=== PATIENT | female | born 1960 | race Caucasian/White ===

== ENCOUNTER 2022-07-10 08:38 | Inpatient (IN) | payer MEDICAID ==
[~2022-07-10] VITALS: Ht 160 cm; Wt 115.0 kg
[~2022-07-10 08:38] MED LIST: CYCL-1 PO; PHEN-786 PO
[2022-07-10 09:42] LABS: BASOPHILS % (AUTO) 0.2 % (0-1); EOSINOPHILS % (AUTO) 0.1 % (0-6); HEMATOCRIT 41.1 % (35.0-45.0); LYMPHOCYTES # (AUTO) 0.4 X10'3 (1.1-4.8); LYMPHOCYTES % (AUTO) 1.8 % (21-51); MEAN CORPUSCULAR HEMOGLOBIN 32.4 PG (27.0-31.0); MEAN CORPUSCULAR VOLUME 95.2 FL (78-98); MEAN PLATELET VOLUME 7.8 FL (7.4-10.4); MONOCYTES # (AUTO) 2.1 X10'3 (0-0.9); MONOCYTES % (AUTO) 10.5 % (2-12); NEUTROPHILS # (AUTO) 17.8 X10'3 (1.8-7.7); NEUTROPHILS % (AUTO) 87.4 % (42-75); PLATELET COUNT 271 X10'3 (140-440); RED BLOOD COUNT 4.32 X10'6 (4.20-5.60); RED CELL DISTRIBUTION WIDTH 13.1 % (11.5-14.5); WHITE BLOOD COUNT 20.3 X10'3 (4.5-11.0)
[2022-07-10 10:04] LABS: ALANINE AMINOTRANSFERASE 186 U/L (12-78); ALBUMIN 3.1 G/DL (3.4-5.0); ALBUMIN/GLOBULIN RATIO 0.6 (1.1-1.5); ALKALINE PHOSPHATASE 176 IU/L (46-116); ANION GAP 10 (8-16); ASPARTATE AMINO TRANSFERASE 112 U/L (10-37); BILIRUBIN,TOTAL 1.7 MG/DL (0.1-1.0); BLOOD UREA NITROGEN 13 MG/DL (7-18); BUN/CREATININE RATIO 13.5 (6.6-38.0); CALCIUM 9.5 MG/DL (8.5-10.1); CHLORIDE 94 MMOL/L (99-107); CREATININE 0.96 MG/DL (0.40-0.90); GLUCOSE 162 MG/DL (70-104); LIPASE 86 U/L (73-393); POTASSIUM 3.9 MMOL/L (3.5-5.1); SODIUM 130 MMOL/L (135-145); TOTAL CARBON DIOXIDE 25.7 MMOL/L (24-32); TOTAL PROTEIN 7.9 G/DL (6.4-8.2); eGFR 59 ML/MIN
[2022-07-10 10:14] LABS: PLATELET ESTIMATE NORMAL; TOTAL CELLS COUNTED 100
[2022-07-10] MEDS ORDERED: cefTAZidime inj 2 GM in normal saline 100ml IV soln 100 ML IV STA (10:40)
[2022-07-10] MEDS ORDERED: iohexol 300mg/ml 100ml inj. ONE (11:34)
--- NOTE | 2022-07-10 11:56 | NUR ---
Still in the CT scan dept at this time.
[2022-07-10 12:24] LABS: CLARITY,URINE CLEAR (Clear); COLOR,URINE YELLOW (Yellow); GLUCOSE, URINE NEGATIVE (Neg); KETONES,URINE NEGATIVE (Neg); LEUKOCYTE ESTERASE ,URINE NEGATIVE (Neg); NITRITES, URINE NEGATIVE (Neg); OCCULT BLOOD,URINE TRACE-INTACT (Neg); PH,URINE 6.5 (4.8-8.0); PROTEIN,URINE NEGATIVE (Neg); UROBILINOGEN,URINE 0.2 E.U/dL (0.2-1.0)
[2022-07-10 12:28] LABS: URINE HCG NEGATIVE (NEG)
[2022-07-10 12:35] LABS: UA COLLECTION TYPE CLN CATCH MIDSTREAM
[2022-07-10 12:36] LABS: SQUAMOUS EPITHELIAL CELL,UR FEW /LPF (FEW)
[2022-07-10 12:37] LABS: BACTERIA,URINE FEW /HPF (Neg); RBC,URINE 0-2 /HPF (0-2); WBC,URINE 0-4 /HPF (0-4)
[2022-07-10] MEDS ORDERED: metroNIDAZOLE-Flagyl 500mg/NS 100 ML IV STA (14:21)
[2022-07-10] MEDS ORDERED: magnesium hydroxide 30ml (MOM) UD suspension PO PRN (14:35)
[2022-07-10] MEDS ORDERED: mag hydrox/Alum hydrox/simeth 30ml oral suspension PO PRN (14:35)
[2022-07-10] MEDS ORDERED: potassium Cl 40MEQ/1/2NS 520ml 520 ML IV PRN (14:35)
[2022-07-10] MEDS ORDERED: bisacodyl 10mg suppository rectal RC PRN (14:35)
[2022-07-10] MEDS ORDERED: potassium Cl 20 mEq SR tablet PO PRN ×2 (14:35)
[2022-07-10] MEDS ORDERED: magnesium 4gm in 100ml NS 100 ML IV PRN (14:35)
[2022-07-10] MEDS ORDERED: metoclopramide 5 mg/ml inj IV PRN (14:35)
[2022-07-10] MEDS ORDERED: magnesium Cl slow-release 64mg tablet PO PRN (14:35)
[2022-07-10 15:08] LABS: MAGNESIUM 2.1 MG/DL (1.5-2.4)
[2022-07-10] MEDS: normal saline 1000ml 1,000 ML IV SCH (15:10)
[2022-07-10] MEDS: ondansetron/PF 4mg/2ml inj IV PRN (15:10)
[2022-07-10] MEDS: morphine 4 MG/ML inj SYRINge IV PRN ×2 (15:12→20:45)
--- NOTE | 2022-07-10 15:47 | NUR ---
Received patient report from Mara SOTELO in [place]. Will assume patient care when patient comes to the floor.
--- NOTE | 2022-07-10 16:24 | NUR ---
PAGER ID: [phone] MESSAGE: Reyna Surg [phone] Re: Ernie ChisholmA can we get some ativan for patient ?
[2022-07-10] MEDS: LORazepam 0.5 MG tablet PO PRN (16:57)
[2022-07-10 17:00] VITALS: BP 144/72
[2022-07-10 18:00] VITALS: BP 113/72
--- NOTE | 2022-07-10 18:28 | NUR ---
Problems reprioritized. Patient report given, questions answered & plan of care reviewed with Prudence RN.
--- NOTE | 2022-07-10 18:47 | NUR ---
Problems reprioritized. Patient report given, questions answered & plan of care reviewed with Prudence RN.
--- NOTE | 2022-07-10 19:13 | NUR ---
Patient in room [facility]. I have received report from WESTON SOTELO and had the opportunity to ask questions and assume patient care.
[2022-07-10] MEDS ORDERED: docusate sod 100mg capsule PO SCH (20:00)
[2022-07-10] MEDS: K and/or MAG REPLACEMENT MC SCH (20:37)
[2022-07-10] MEDS: diatr meglu/diatrizoate 30ml oral sol.-(3 dose) bottle PO SCH (20:45)
[2022-07-10] MEDS: heparin, porcine 5000 units/ml vial SQ SCH (20:45)
[2022-07-10] MEDS ORDERED: temazepam 15mg capsule PO PRN (21:00)
[2022-07-10] MEDS: cefTAZidime inj. 1 GM in normal saline 100ml IV soln 100 ML IV SCH (21:04)
[2022-07-10 22:00] VITALS: BP 103/65
[2022-07-10] MEDS: metroNIDAZOLE-Flagyl 500mg/NS 100 ML IV SCH (22:27)
[2022-07-11] MEDS: normal saline 1000ml 1,000 ML IV SCH ×3 (01:13→14:33)
[2022-07-11] MEDS: morphine 4 MG/ML inj SYRINge IV PRN ×3 (04:37→23:40)
[2022-07-11] MEDS: metroNIDAZOLE-Flagyl 500mg/NS 100 ML IV SCH ×3 (05:49→21:55)
[2022-07-11 06:00] VITALS: BP 119/73
--- NOTE | 2022-07-11 06:13 | NUR ---
Problems reprioritized. Patient report given, questions answered & plan of care reviewed with HIMA SOTELO/MARISA DOUGLASS.
--- NOTE | 2022-07-11 06:30 | NUR ---
Patient in room [facility]. I have received report from ASHLEIGH Adame and had the opportunity to ask questions and assume patient care.
[2022-07-11] MEDS: diatr meglu/diatrizoate 30ml oral sol.-(3 dose) bottle PO SCH ×2 (07:18→09:57)
[2022-07-11] MEDS: heparin, porcine 5000 units/ml vial SQ SCH ×2 (07:19→20:00)
[2022-07-11 07:23] LABS: BASOPHILS % (AUTO) 0.1 % (0-1); EOSINOPHILS % (AUTO) 0.2 % (0-6); HEMATOCRIT 34.7 % (35.0-45.0); HEMOGLOBIN 11.5 g/dl (12.0-16.0); LYMPHOCYTES # (AUTO) 0.6 X10'3 (1.1-4.8); LYMPHOCYTES % (AUTO) 5.6 % (21-51); MEAN CORPUSCULAR HEMOGLOBIN 31.8 PG (27.0-31.0); MEAN CORPUSCULAR HGB CONC 33.1 g/dL (33.0-36.5); MEAN CORPUSCULAR VOLUME 96.1 FL (78-98); MEAN PLATELET VOLUME 7.6 FL (7.4-10.4); MONOCYTES # (AUTO) 1.2 X10'3 (0-0.9); NEUTROPHILS # (AUTO) 9.3 X10'3 (1.8-7.7); NEUTROPHILS % (AUTO) 83.1 % (42-75); PLATELET COUNT 250 X10'3 (140-440); RED BLOOD COUNT 3.61 X10'6 (4.20-5.60); RED CELL DISTRIBUTION WIDTH 13.3 % (11.5-14.5); WHITE BLOOD COUNT 11.2 X10'3 (4.5-11.0)
[2022-07-11 07:26] LABS: ALANINE AMINOTRANSFERASE 110 U/L (12-78); ALBUMIN 2.3 G/DL (3.4-5.0); ALBUMIN/GLOBULIN RATIO 0.6 (1.1-1.5); ALKALINE PHOSPHATASE 124 IU/L (46-116); ANION GAP 5 (8-16); ASPARTATE AMINO TRANSFERASE 31 U/L (10-37); BILIRUBIN,TOTAL 0.4 MG/DL (0.1-1.0); BLOOD UREA NITROGEN 12 MG/DL (7-18); BUN/CREATININE RATIO 17.9 (6.6-38.0); CALCIUM 8.6 MG/DL (8.5-10.1); CHLORIDE 103 MMOL/L (99-107); CREATININE 0.67 MG/DL (0.40-0.90); GLUCOSE 116 MG/DL (70-104); MAGNESIUM 2.2 MG/DL (1.5-2.4); SODIUM 135 MMOL/L (135-145); TOTAL CARBON DIOXIDE 27.5 MMOL/L (24-32); TOTAL PROTEIN 6.2 G/DL (6.4-8.2); eGFR 90 ML/MIN
[2022-07-11] MEDS: K and/or MAG REPLACEMENT MC SCH ×2 (08:05→20:00)
[2022-07-11] MEDS: cefTAZidime inj. 1 GM in normal saline 100ml IV soln 100 ML IV SCH (08:12)
[2022-07-11 10:00] VITALS: BP 117/74
[2022-07-11] MEDS ORDERED: iohexol 300mg/ml 100ml inj. ONE (10:54)
[2022-07-11] MEDS: CefTRIAXone 2gm/D5W 50ml BAG 50 ML IV SCH (11:25)
[2022-07-11] MEDS ORDERED: NO HOME MEDS (12:07)
--- NOTE | 2022-07-11 17:59 | NUR ---
I have reviewed and agree with all interventions, assessments performed and documented by EVONNE CUNNINGHAM.
--- NOTE | 2022-07-11 18:13 | NUR ---
Problems reprioritized. Patient report given, questions answered & plan of care reviewed with ASHLEIGH Toledo.
[2022-07-11 19:10] VITALS: BP 140/76
[2022-07-12] VITALS (16 sets, daily range): BP systolic 128–159; BP diastolic 69–92
[2022-07-12] MEDS: normal saline 1000ml 1,000 ML IV SCH ×2 (02:00→14:39)
[2022-07-12] MEDS: metroNIDAZOLE-Flagyl 500mg/NS 100 ML IV SCH ×3 (05:27→22:12)
[2022-07-12] MEDS: ondansetron/PF 4mg/2ml inj IV PRN (06:02)
--- NOTE | 2022-07-12 06:53 | NUR ---
Patient in room [facility]. I have received report from ASHLEIGH Toledo and had the opportunity to ask questions and assume patient care.
--- NOTE | 2022-07-12 06:59 | NUR ---
Problems reprioritized. Patient report given, questions answered & plan of care reviewed with Mitul. Addendum: 07/12/22 at 0659 by Gordon Arenas RN Amended: Links added.
[2022-07-12 07:16] LABS: BASOPHILS % (AUTO) 0 % (0-1); EOSINOPHILS % (AUTO) 0.1 % (0-6); HEMATOCRIT 37.1 % (35.0-45.0); HEMOGLOBIN 12.1 g/dl (12.0-16.0); LYMPHOCYTES # (AUTO) 0.5 X10'3 (1.1-4.8); LYMPHOCYTES % (AUTO) 4.1 % (21-51); MEAN CORPUSCULAR HEMOGLOBIN 32.6 PG (27.0-31.0); MEAN CORPUSCULAR HGB CONC 32.5 g/dL (33.0-36.5); MEAN CORPUSCULAR VOLUME 100.1 FL (78-98); MEAN PLATELET VOLUME 7.3 FL (7.4-10.4); MONOCYTES # (AUTO) 1.3 X10'3 (0-0.9); MONOCYTES % (AUTO) 11.4 % (2-12); NEUTROPHILS # (AUTO) 9.8 X10'3 (1.8-7.7); NEUTROPHILS % (AUTO) 84.4 % (42-75); PLATELET COUNT 259 X10'3 (140-440); RED CELL DISTRIBUTION WIDTH 13.6 % (11.5-14.5); WHITE BLOOD COUNT 11.7 X10'3 (4.5-11.0)
[2022-07-12] MEDS: heparin, porcine 5000 units/ml vial SQ SCH ×2 (07:23→20:00)
[2022-07-12 07:26] LABS: APTT 31 SECONDS (22-32)
[2022-07-12 07:33] LABS: ALANINE AMINOTRANSFERASE 76 U/L (12-78); ALBUMIN 2.2 G/DL (3.4-5.0); ALBUMIN/GLOBULIN RATIO 0.6 (1.1-1.5); ALKALINE PHOSPHATASE 118 IU/L (46-116); ANION GAP 8 (8-16); ASPARTATE AMINO TRANSFERASE 19 U/L (10-37); BILIRUBIN,TOTAL 0.4 MG/DL (0.1-1.0); BLOOD UREA NITROGEN 7 MG/DL (7-18); BUN/CREATININE RATIO 11.5 (6.6-38.0); CALCIUM 8.4 MG/DL (8.5-10.1); CHLORIDE 102 MMOL/L (99-107); CREATININE 0.61 MG/DL (0.40-0.90); GLUCOSE 118 MG/DL (70-104); MAGNESIUM 2.1 MG/DL (1.5-2.4); POTASSIUM 3.8 MMOL/L (3.5-5.1); SODIUM 133 MMOL/L (135-145); TOTAL CARBON DIOXIDE 23.4 MMOL/L (24-32); TOTAL PROTEIN 6.2 G/DL (6.4-8.2); eGFR > 90 ML/MIN
[2022-07-12] MEDS: CefTRIAXone 2gm/D5W 50ml BAG 50 ML IV SCH (08:15)
[2022-07-12] MEDS: K and/or MAG REPLACEMENT MC SCH ×2 (08:19→20:00)
[2022-07-12] MEDS: morphine 4 MG/ML inj SYRINge IV PRN ×2 (10:00→18:18)
--- NOTE | 2022-07-12 11:06 | NUR ---
I have reviewed and agree with all interventions, assessments performed and documented by EVONNE CUNNINGHAM.
[2022-07-12] MEDS ORDERED: fentaNYL/PF 50MCG/1 ML 2ML syringe ONE (11:31)
[2022-07-12] MEDS ORDERED: midazolam 1 mg/ML 2ml injection ONE (11:31)
--- NOTE | 2022-07-12 12:45 | NUR ---
Recevied patient back from IR procedure. Post op vital signs started, VSS. 2 new JAYCEE drains. Dressings CDI. Patient reports no pain at this time.
[2022-07-12] MEDS: acetaminophen 325mg tablet PO PRN ×2 (14:34→22:32)
--- NOTE | 2022-07-12 18:20 | NUR ---
Problems reprioritized. Patient report given, questions answered & plan of care reviewed with ASHLEIGH Toledo.
[2022-07-13] MEDS: morphine 4 MG/ML inj SYRINge IV PRN ×3 (02:13→19:34)
[2022-07-13] MEDS: normal saline 1000ml 1,000 ML IV SCH ×3 (02:13→22:35)
[2022-07-13] MEDS: acetaminophen 325mg tablet PO PRN ×2 (04:48→13:52)
[2022-07-13 04:51] LABS: BASOPHILS % (AUTO) 0.2 % (0-1); EOSINOPHILS % (AUTO) 0.5 % (0-6); HEMATOCRIT 35.1 % (35.0-45.0); HEMOGLOBIN 11.7 g/dl (12.0-16.0); LYMPHOCYTES # (AUTO) 0.6 X10'3 (1.1-4.8); LYMPHOCYTES % (AUTO) 7.2 % (21-51); MEAN CORPUSCULAR HEMOGLOBIN 32.2 PG (27.0-31.0); MEAN CORPUSCULAR HGB CONC 33.4 g/dL (33.0-36.5); MEAN CORPUSCULAR VOLUME 96.5 FL (78-98); MEAN PLATELET VOLUME 7.1 FL (7.4-10.4); MONOCYTES # (AUTO) 0.9 X10'3 (0-0.9); MONOCYTES % (AUTO) 10.1 % (2-12); NEUTROPHILS # (AUTO) 7.3 X10'3 (1.8-7.7); PLATELET COUNT 269 X10'3 (140-440); RED BLOOD COUNT 3.64 X10'6 (4.20-5.60); RED CELL DISTRIBUTION WIDTH 12.7 % (11.5-14.5); WHITE BLOOD COUNT 8.9 X10'3 (4.5-11.0)
[2022-07-13 05:10] LABS: PLATELET ESTIMATE NORMAL; SMUDGE CELLS FEW; TOTAL CELLS COUNTED 100
[2022-07-13 05:19] LABS: ALANINE AMINOTRANSFERASE 53 U/L (12-78); ALBUMIN 2.1 G/DL (3.4-5.0); ALBUMIN/GLOBULIN RATIO 0.6 (1.1-1.5); ALKALINE PHOSPHATASE 112 IU/L (46-116); ANION GAP 4 (8-16); ASPARTATE AMINO TRANSFERASE 24 U/L (10-37); BILIRUBIN,TOTAL 0.3 MG/DL (0.1-1.0); BLOOD UREA NITROGEN 8 MG/DL (7-18); BUN/CREATININE RATIO 13.6 (6.6-38.0); CALCIUM 8.2 MG/DL (8.5-10.1); CHLORIDE 102 MMOL/L (99-107); CREATININE 0.59 MG/DL (0.40-0.90); GLUCOSE 100 MG/DL (70-104); MAGNESIUM 2.1 MG/DL (1.5-2.4); POTASSIUM 3.7 MMOL/L (3.5-5.1); SODIUM 136 MMOL/L (135-145); TOTAL CARBON DIOXIDE 30.3 MMOL/L (24-32); TOTAL PROTEIN 5.6 G/DL (6.4-8.2); eGFR > 90 ML/MIN
[2022-07-13] MEDS: metroNIDAZOLE-Flagyl 500mg/NS 100 ML IV SCH ×3 (05:27→21:29)
[2022-07-13 06:00] VITALS: BP 156/84
--- NOTE | 2022-07-13 06:34 | NUR ---
Problems reprioritized. Patient report given, questions answered & plan of care reviewed with LEXIE. Addendum: 07/13/22 at 0635 by Gordon Arenas RN Amended: Links added.
--- NOTE | 2022-07-13 06:48 | NUR ---
Patient in room [facility]. I have received report from Tre and had the opportunity to ask questions and assume patient care.
[2022-07-13] MEDS: heparin, porcine 5000 units/ml vial SQ SCH ×2 (08:00→19:40)
[2022-07-13] MEDS: K and/or MAG REPLACEMENT MC SCH ×2 (08:00→20:00)
[2022-07-13] MEDS: CefTRIAXone 2gm/D5W 50ml BAG 50 ML IV SCH (09:01)
[2022-07-13 11:00] VITALS: BP 142/80
[2022-07-13] MEDS: ondansetron/PF 4mg/2ml inj IV PRN ×2 (14:01→19:34)
[2022-07-13 14:38] LABS: CANCER ANTIGEN 125 10.4 U/mL (0.0-38.1); CARCINOEMBRYONIC ANTIGEN 4.1 ng/mL (0.0-4.7)
[2022-07-13 18:00] VITALS: BP 150/87
--- NOTE | 2022-07-13 18:29 | NUR ---
Problems reprioritized. Patient report given, questions answered & plan of care reviewed with
[2022-07-13 22:00] VITALS: BP 147/80
[2022-07-14] MEDS: morphine 4 MG/ML inj SYRINge IV PRN ×2 (01:10→19:13)
[2022-07-14] MEDS: acetaminophen 325mg tablet PO PRN (03:52)
[2022-07-14] MEDS: metroNIDAZOLE-Flagyl 500mg/NS 100 ML IV SCH ×2 (05:17→14:16)
--- NOTE | 2022-07-14 06:15 | NUR ---
Problems reprioritized. Patient report given, questions answered & plan of care reviewed with ASHLEIGH OWEN.
[2022-07-14 06:27] LABS: ALANINE AMINOTRANSFERASE 45 U/L (12-78); ALBUMIN 2.1 G/DL (3.4-5.0); ALBUMIN/GLOBULIN RATIO 0.6 (1.1-1.5); ALKALINE PHOSPHATASE 118 IU/L (46-116); ANION GAP 6 (8-16); ASPARTATE AMINO TRANSFERASE 16 U/L (10-37); BILIRUBIN,TOTAL 0.3 MG/DL (0.1-1.0); BLOOD UREA NITROGEN 7 MG/DL (7-18); BUN/CREATININE RATIO 12.7 (6.6-38.0); CALCIUM 8.5 MG/DL (8.5-10.1); CHLORIDE 103 MMOL/L (99-107); CREATININE 0.55 MG/DL (0.40-0.90); GLUCOSE 117 MG/DL (70-104); MAGNESIUM 2.1 MG/DL (1.5-2.4); POTASSIUM 3.8 MMOL/L (3.5-5.1); SODIUM 136 MMOL/L (135-145); TOTAL CARBON DIOXIDE 27.3 MMOL/L (24-32); TOTAL PROTEIN 5.8 G/DL (6.4-8.2); eGFR > 90 ML/MIN
[2022-07-14 06:28] LABS: BASOPHILS % (AUTO) 0.1 % (0-1); EOSINOPHILS # (AUTO) 0.1 X10'3 (0-0.9); EOSINOPHILS % (AUTO) 0.5 % (0-6); HEMATOCRIT 37.6 % (35.0-45.0); HEMOGLOBIN 12.7 g/dl (12.0-16.0); LYMPHOCYTES # (AUTO) 0.7 X10'3 (1.1-4.8); LYMPHOCYTES % (AUTO) 5.9 % (21-51); MEAN CORPUSCULAR HEMOGLOBIN 32.3 PG (27.0-31.0); MEAN CORPUSCULAR HGB CONC 33.7 g/dL (33.0-36.5); MEAN CORPUSCULAR VOLUME 95.8 FL (78-98); MEAN PLATELET VOLUME 7.3 FL (7.4-10.4); MONOCYTES # (AUTO) 0.8 X10'3 (0-0.9); MONOCYTES % (AUTO) 7.1 % (2-12); NEUTROPHILS # (AUTO) 9.9 X10'3 (1.8-7.7); NEUTROPHILS % (AUTO) 86.4 % (42-75); PLATELET COUNT 304 X10'3 (140-440); RED BLOOD COUNT 3.92 X10'6 (4.20-5.60); RED CELL DISTRIBUTION WIDTH 13.1 % (11.5-14.5); WHITE BLOOD COUNT 11.5 X10'3 (4.5-11.0)
--- NOTE | 2022-07-14 06:30 | NUR ---
Patient in room [facility]. I have received report from Serenity and had the opportunity to ask questions and assume patient care.
[2022-07-14 06:44] VITALS: BP 131/62
[2022-07-14 07:12] LABS: PLATELET ESTIMATE NORMAL; TOTAL CELLS COUNTED 100
[2022-07-14] MEDS: heparin, porcine 5000 units/ml vial SQ SCH ×2 (08:00→19:23)
[2022-07-14] MEDS: K and/or MAG REPLACEMENT MC SCH ×2 (08:00→19:26)
[2022-07-14 09:18] LABS: AFP,SERUM, TUMOR MARKER 2.4 ng/mL (0.0-9.2)
[2022-07-14] MEDS: CefTRIAXone 2gm/D5W 50ml BAG 50 ML IV SCH (09:26)
[2022-07-14] MEDS: normal saline 1000ml 1,000 ML IV SCH ×2 (09:30→19:15)
[2022-07-14 10:00] VITALS: BP 138/69
--- NOTE | 2022-07-14 13:44 | NUR ---
Student documentation:[facility] student Lisha I have reviewed and agree with all interventions, assessments performed and medication administration per hospital policy and documented by Prasanna
[2022-07-14] MEDS: ondansetron/PF 4mg/2ml inj IV PRN (14:17)
[2022-07-14] MEDS: morphine 2 MG/ML inj. syringe IV PRN (14:17)
[2022-07-14 18:00] VITALS: BP 158/86
--- NOTE | 2022-07-14 18:35 | NUR ---
Problems reprioritized. Patient report given, questions answered & plan of care reviewed with Huy.
[2022-07-14] MEDS: ondansetron 4mg rapidly disintigrating tab PO PRN (19:14)
[2022-07-14 22:00] VITALS: BP 152/88
[2022-07-14] MEDS: LORazepam 0.5 MG tablet PO PRN (22:47)
[2022-07-15] MEDS: metroNIDAZOLE 500mg tablet PO SCH ×4 (00:04→23:17)
[2022-07-15] MEDS: normal saline 1000ml 1,000 ML IV SCH (04:35)
--- NOTE | 2022-07-15 05:25 | NUR ---
right claire drain serous drainage 10ml. left claire more sanguinous, did not empty due to lack of drainage.
[2022-07-15 06:00] VITALS: BP 166/83
--- NOTE | 2022-07-15 06:03 | NUR ---
reported to days. noted pt has less pain and drainage has decreased from JAYCEE's. encouraged ambulation
[2022-07-15 06:41] LABS: BASOPHILS % (AUTO) 0.3 % (0-1); EOSINOPHILS # (AUTO) 0.1 X10'3 (0-0.9); EOSINOPHILS % (AUTO) 0.9 % (0-6); HEMATOCRIT 39.6 % (35.0-45.0); HEMOGLOBIN 12.9 g/dl (12.0-16.0); LYMPHOCYTES # (AUTO) 0.7 X10'3 (1.1-4.8); LYMPHOCYTES % (AUTO) 7.7 % (21-51); MEAN CORPUSCULAR HEMOGLOBIN 30.9 PG (27.0-31.0); MEAN CORPUSCULAR HGB CONC 32.5 g/dL (33.0-36.5); MEAN CORPUSCULAR VOLUME 95.1 FL (78-98); MEAN PLATELET VOLUME 7.1 FL (7.4-10.4); MONOCYTES # (AUTO) 0.6 X10'3 (0-0.9); MONOCYTES % (AUTO) 6.5 % (2-12); NEUTROPHILS # (AUTO) 7.7 X10'3 (1.8-7.7); NEUTROPHILS % (AUTO) 84.6 % (42-75); PLATELET COUNT 347 X10'3 (140-440); RED BLOOD COUNT 4.16 X10'6 (4.20-5.60); WHITE BLOOD COUNT 9.1 X10'3 (4.5-11.0)
[2022-07-15 06:55] LABS: ALANINE AMINOTRANSFERASE 50 U/L (12-78); ALBUMIN 2.3 G/DL (3.4-5.0); ALBUMIN/GLOBULIN RATIO 0.6 (1.1-1.5); ALKALINE PHOSPHATASE 111 IU/L (46-116); ANION GAP 3 (8-16); ASPARTATE AMINO TRANSFERASE 39 U/L (10-37); BILIRUBIN,TOTAL 0.2 MG/DL (0.1-1.0); BLOOD UREA NITROGEN 6 MG/DL (7-18); BUN/CREATININE RATIO 10.5 (6.6-38.0); CALCIUM 8.3 MG/DL (8.5-10.1); CHLORIDE 103 MMOL/L (99-107); CREATININE 0.57 MG/DL (0.40-0.90); GLUCOSE 106 MG/DL (70-104); POTASSIUM 3.5 MMOL/L (3.5-5.1); SODIUM 138 MMOL/L (135-145); TOTAL CARBON DIOXIDE 31.7 MMOL/L (24-32); eGFR > 90 ML/MIN
--- NOTE | 2022-07-15 06:59 | NUR ---
Patient in room [facility]. I have received report from Huy SOTELO and had the opportunity to ask questions and assume patient care.
[2022-07-15 07:59] VITALS: BP 166/83
[2022-07-15] MEDS: K and/or MAG REPLACEMENT MC SCH ×2 (08:00→20:00)
[2022-07-15] MEDS: heparin, porcine 5000 units/ml vial SQ SCH ×2 (08:00→19:49)
[2022-07-15] MEDS: CefTRIAXone 2gm/D5W 50ml BAG 50 ML IV SCH (08:19)
--- NOTE | 2022-07-15 09:44 | NUR ---
Initial: Pt admit DX sepsis, hepatic abscesses, LILI related to dehydration w/ volume depletion, and hyponatremia-now resolved on NS per EMR. S/p bilateral hepatic JAYCEE drains per EMR. PO ~50% avg regular diet partially meeting estimated needs given DX; RD recommends Ensure High Protein TIDWM MD notified. LBM 07/14 w/ fluctuating N/V/abdominal pain this admit though improving per MD note. Will monitor for further nutrition intervention needs this admit. Rec: 1. continue regular diet; encourage PO 2. Ensure High Protein TIDWM; pending physician verification in EMR 3. bowel care per rx 4. scaled wt this admit; subsequent weekly wts Addendum: 07/15/22 at [address] Amended: Links added.
[2022-07-15 10:00] VITALS: BP 148/83
[2022-07-15 10:01] LABS: PLATELET ESTIMATE NORMAL; TOTAL CELLS COUNTED 100
[2022-07-15] MEDS ORDERED: iohexol 300mg/ml 100ml inj. ONE (10:37)
[2022-07-15] MEDS ORDERED: tPA-cathflo 2 MG/2 ml IV flush ONE (11:24)
[2022-07-15] MEDS: LORazepam 0.5 MG tablet PO PRN ×2 (12:01→19:48)
[2022-07-15] MEDS ORDERED: lactose-reduced food (Ensure High Protein) 237ml bottle PO SCH (13:00)
[2022-07-15] MEDS: morphine 2 MG/ML inj. syringe IV PRN (14:51)
[2022-07-15] MEDS: acetaminophen 325mg tablet PO PRN ×2 (15:52→23:24)
[2022-07-15 18:00] VITALS: BP 145/87
--- NOTE | 2022-07-15 18:38 | NUR ---
Problems reprioritized. Patient report given, questions answered & plan of care reviewed with MESHA SOTELO..
[2022-07-15 22:00] VITALS: BP 154/85
[2022-07-15] MEDS: ondansetron 4mg rapidly disintigrating tab PO PRN (23:17)
[2022-07-15] MEDS: morphine 4 MG/ML inj SYRINge IV PRN (23:25)
[2022-07-16] MEDS: normal saline 1000ml 1,000 ML IV SCH ×3 (00:35→07:25)
--- NOTE | 2022-07-16 04:23 | NUR ---
Dressing leaked so checked tubing and it was clamped so we unclamped it
--- NOTE | 2022-07-16 05:32 | NUR ---
drained 30 mL of dickson blood from JAYCEE drain. Addendum: 07/16/22 at 0540 by Renetta Mcfadden - [facility] MCINTOSH Amended: Links added.
[2022-07-16 06:00] VITALS: BP 159/88
--- NOTE | 2022-07-16 06:00 | NUR ---
reported to days. noted JAYCEE drainage. pt ambulating. feeling better
--- NOTE | 2022-07-16 06:50 | NUR ---
Patient in room [facility]. I have received report from Renetta ozuna RN and Huy SOTELO and had the opportunity to ask questions and assume patient care.
[2022-07-16] MEDS: metroNIDAZOLE 500mg tablet PO SCH ×2 (07:23→15:30)
[2022-07-16] MEDS: heparin, porcine 5000 units/ml vial SQ SCH (07:25)
--- NOTE | 2022-07-16 07:26 | NUR ---
Student Medication Administration: For this medication-pass time frame, all medication were reviewed, dispensed, administered and documented per hospital policy by Lauri Wayne student with Melissa Randolph RN instructor.
[2022-07-16] MEDS: K and/or MAG REPLACEMENT MC SCH (08:00)
[2022-07-16 10:00] VITALS: BP 141/82
[2022-07-16] MEDS ORDERED: levoFLOXACIN 500mg tablet PO SCH (11:00)
[2022-07-16 11:39] VITALS: BP 147/83
[2022-07-16] MEDS ORDERED: METR-159 PO (11:56)
[2022-07-16] MEDS ORDERED: LEVO-65 PO (14:44)
--- NOTE | 2022-07-16 15:18 | NUR ---
Patient's prescription called in to [facility] in [place] [phone].
--- NOTE | 2022-07-16 15:31 | NUR ---
Student Medication Administration: For this medication-pass time frame, all medication were reviewed, dispensed, administered and documented per hospital policy by Lauri ozuna with instructor Melissa Randolph RN.
--- NOTE | 2022-07-16 15:37 | NUR ---
Patient stable and appropriate for discharge. PIV removed by RN student this shift, patient tolerated well. Discharge paper work reviewed and education provided, patient states understanding. Education and instruction provided re JAYCEE drain, demonstration performed for care and drainage of drain. Patient states understanding and does not have any questions. Output log provided along with containers for drainage and syringe for measurement. Patient was encouraged to follow up with Dr. Hoffmann and PCP, aware of new medications and is agreeable to pick them up. Patient assisted out of facility with RN sulma Yanez via w/c and independent into friend's vehicle
--- NOTE | 2022-07-16 17:15 | NUR ---
STAFF RADIATION THERAPIST documentation: I have reviewed and agree with all interventions, assessments performed and documented by Marissa James LVN.
--- NOTE | 2022-07-16 19:57 | NUR ---
Student documentation: I have reviewed and agree with all interventions, assessments performed and documented by Jaden Wayne student nurse, by Shannen Randolph RN Instructor.
== END 2022-07-16 15:47 | disposition home or self-care (01) | DRG 720 ==
LOC: ER 08:38 → ED HOLD 14:39 → EDBEDREQ 15:00 → SUR 3N 15:57
PROVIDERS: ADMIT Family Medicine; ATTEND Family Medicine
PROC: BW211ZZ Computerized Tomography (CT Scan) of Abdomen and Pelvis using Low Osmolar Contrast (ICD-10-PCS; 2022-07-10)
PROC: BW211ZZ Computerized Tomography (CT Scan) of Abdomen and Pelvis using Low Osmolar Contrast (ICD-10-PCS; 2022-07-11)
PROC: 0F9230Z Drainage of Left Lobe Liver with Drainage Device, Percutaneous Approach (ICD-10-PCS; 2022-07-12)
PROC: 0F9130Z Drainage of Right Lobe Liver with Drainage Device, Percutaneous Approach (ICD-10-PCS; 2022-07-12)
PROC: BW201ZZ Computerized Tomography (CT Scan) of Abdomen using Low Osmolar Contrast (ICD-10-PCS; principal; 2022-07-15)
DX: A41.9 Sepsis, unspecified organism (principal); N17.0 Acute kidney failure with tubular necrosis; K75.0 Abscess of liver; K81.0 Acute cholecystitis; R74.01 Elevation of levels of liver transaminase levels; E87.1 Hypo-osmolality and hyponatremia; Z88.0 Allergy status to penicillin; Z88.2 Allergy status to sulfonamides; Z90.710 Acquired absence of both cervix and uterus; Z79.899 Other long term (current) drug therapy
CPT/HCPCS: 36415; 49406; 71045; 74177; 74178; 76700; 76942; 80053; 81001; 81025; 82103; 82378; 83605; 83690; 83735; 84145; 85007; 85025; 85610; 85730; 86301; 86304; 87040; 87070; 87081; 96365; 99152; 99153; 99285; A4421; A4615; A6212; A6213; A6258; C1729; C1769; G0378; J0696; J0713; J1644; J2250; J2270; J2405; J2997; J3010; J3490; J7030; Q9963; Q9967

== ENCOUNTER 2023-01-20 11:51 | Day surgery (SDC) | payer MEDICAID ==
[~2023-01-20] VITALS: Ht 160 cm; Wt 52.4 kg
[~2023-01-20 11:51] MED LIST changes: -CYCL-1 PO; +LEVO-65 PO; +METR-159 PO; -PHEN-786 PO
[2023-01-20 12:10] VITALS: BP 142/79; PULSE 102; RESP 16; TEMP 97.5; O2SAT 95
[2023-01-20] MEDS ORDERED: normal saline 1000ml 1,000 ML IV PRN (12:15)
[2023-01-20] MEDS ORDERED: ACET-2389 PO (12:26)
[2023-01-20] MEDS ORDERED: MORP15TA PO (12:26)
[2023-01-20 12:57] LABS: BASOPHILS % (AUTO) 0.5 % (0-1); EOSINOPHILS % (AUTO) 0.7 % (0-6); HEMATOCRIT 44.4 % (35.0-45.0); LYMPHOCYTES # (AUTO) 1.2 X10'3 (1.1-4.8); LYMPHOCYTES % (AUTO) 17.7 % (21-51); MEAN CORPUSCULAR HEMOGLOBIN 32.8 PG (27.0-31.0); MEAN CORPUSCULAR HGB CONC 33.8 g/dL (33.0-36.5); MONOCYTES # (AUTO) 0.5 X10'3 (0-0.9); MONOCYTES % (AUTO) 7.1 % (2-12); NEUTROPHILS # (AUTO) 4.9 X10'3 (1.8-7.7); PLATELET COUNT 229 X10'3 (140-440); RED BLOOD COUNT 4.57 X10'6 (4.20-5.60); RED CELL DISTRIBUTION WIDTH 13.5 % (11.5-14.5); WHITE BLOOD COUNT 6.7 X10'3 (4.5-11.0)
[2023-01-20 12:59] LABS: ANION GAP 9 (8-16); BLOOD UREA NITROGEN 12 MG/DL (7-18); BUN/CREATININE RATIO 13.2 (10.0-20.0); CALCIUM 9.5 MG/DL (8.5-10.1); CHLORIDE 102 MMOL/L (99-107); CREATININE 0.91 MG/DL (0.40-0.90); GLUCOSE 107 MG/DL (70-104); POTASSIUM 3.9 MMOL/L (3.5-5.1); SODIUM 136 MMOL/L (135-145); TOTAL CARBON DIOXIDE 25.2 MMOL/L (24-32); eCRCL 54 ML/MIN; eGFR 63 ML/MIN
[2023-01-20] MEDS ORDERED: heparin sodium, porcine/PF 100unit/ml 5ML syringe ONE (13:13)
[2023-01-20] MEDS ORDERED: fentaNYL/PF 50MCG/1 ML 2ML syringe ONE (13:13)
[2023-01-20] MEDS ORDERED: midazolam 1 mg/ML 2ml injection ONE (13:13)
[2023-01-20] MEDS ORDERED: diphenhydrAMINE 50 mg/ml inj ONE ×2 (13:44→13:46)
[2023-01-20] MEDS ORDERED: ondansetron/PF 4mg/2ml inj ONE ×2 (13:45→13:46)
[2023-01-20 14:20] VITALS: BP 157/87; PULSE 96; RESP 16; O2SAT 96
[2023-01-20 14:35] VITALS: BP 161/90; PULSE 98; RESP 17; O2SAT 98
[2023-01-20 14:50] VITALS: BP 143/82; PULSE 98; RESP 16; O2SAT 98
[2023-01-20 15:05] VITALS: BP 152/79; PULSE 104; RESP 16; O2SAT 96
== END 2023-01-20 15:20 | disposition home or self-care (01) ==
LOC: SSTAY O 11:51
PROVIDERS: ATTEND Radiology Vascular & Interventional Radiology
DX: C44.520 Squamous cell carcinoma of anal skin (principal); Z88.0 Allergy status to penicillin; Z88.2 Allergy status to sulfonamides; Z88.5 Allergy status to narcotic agent; Z79.899 Other long term (current) drug therapy; F12.90 Cannabis use, unspecified, uncomplicated; Z90.710 Acquired absence of both cervix and uterus
CPT/HCPCS: 36415; 36561; 76937; 77001; 80048; 85025; 99152; C1769; C1788; J1200; J1642; J2250; J2405; J3010; J7030; 76942; 99153; A4620; C1894